=== PATIENT | male | born 1970 | race Caucasian/White ===

== ENCOUNTER 2025-07-18 20:29 | Emergency (ER) | payer OTHER, SELFPAY ==
--- OUTSIDE RECORDS SUMMARY | 2021-03-16 07:20 | XMS_ITS | Continuity of Care Document ---
Author Organization [facility] Address [address] [place] [address] Phone Care Team Providers Care Filer And Sander Name Role Phone Americo Dorantes MD Unavailable Unavailable Allergies, Adverse Reactions, Alerts Substance Reaction Status Criticality No Known Allergies Active No Inform ation Medications Medication Instructions Dosage Effective Dates (start - stop) Status Comments hydrocodone 5 mg-acetaminophen 325 mg tablet 1-2 po bid prn pain - Active G89.11 acute pain tramadol 50 mg tablet 1-2 po bid prn pain - Active Acute p ain G89.117 day supply prednisone 20 mg tablet 3 po daily x 3d 2 po daily x 2d 1 po daily x1 d - Active Procedures Procedure Date Office/outpatient visit,est, mod 2020 Inject foramin, lumb/sacral, single Office/outpatient visit,est, mod 2020 MRI Lumbar Spine wo Contrast Office/outpatient visit,est, mod 2020 Office/outpatient visit,new, mod 2020 X-ray exam lower spine 2-3 views 2020 Advance Directives Directive Yes / No Effective Date File Name No Information Encounters Encounter Description Practice Location Reason(s) For Visit Diagnoses Date Provider Providers Copied on Encounter [facility], [facility] [place], [address], [place] tel:[phone] [facility] No Information 1 Jayna Driscoll. [address] [facility], [place], [place], [id number] , [place]. tel:[phone] Referring Provider: Americo Aburto, [address] [facility], [place], [address] . tel:[phone] Office/outpat ient visit,est, mod [facility], [facility] [address] [place], [place], [facility], tel:[phone] [facility] Radiculopath y, lumbar region 1 Jayna Driscoll. [address] [facility], [place], [place], [id number] , [place]. tel:[phone] Referring Provider: Americo Aburto, [address] [facility] [facility], [place], [address] . tel:[phone] [facility], [facility] [place], [place], [facility], tel:[phone] [facility] No Information 1 Jayna Driscoll. [address] [facility] [facility], [place], [place], [id number] , [place]. tel:[phone] Referring Provider: Americo Aburto, [address] [facility] [facility], [place], [address] . tel:[phone] Office/outpat ient visit,est, mod [facility], [facility] [place], [address], [place] tel:[phone] [facility]icul[facility], lumbar region 1 Jayna Driscoll. [address] [facility], [place], [place], [id number] , [place]. tel:[phone] Referring Provider: Americo Aburto, [address] [place], [address] . tel:[phone] [facility], [facility] [address] [place], [place], [facility], [place] tel:[phone] [facility] No Information 1 Jayna Driscoll. [address], [place], [id number] , . tel:[phone] Referring Provider: Americo Aburto, [address] [place], [address] . tel:[phone] Office/outpat ient visit,[facility], [facility] [address] [place], [place], [facility], tel:[phone] Ike Patino Other spondylosis, lumbar region Dec-0 1 Jayna Driscoll. [address], [place], [id number] , [place]. [phone] Referring Provider: Americo Aburto, [address] [place], [address] . tel:[phone] Office/outpat ient visit,[facility], [facility] [address] [place], [place], [facility], tel:[phone] Ike Patino Other spondylosis, lumbar region 3 1 Jayna Driscoll. [address], [place], [id number] , . [phone] Family History Family Member Type Diagnosis Age At Onset Mother Problem (finding) Diabetes mellitus Brother Problem (finding) Hypertension Mother Problem (finding) Hypertension Father Problem (finding) Hypertension Father Problem (finding) Congenital heart diseas e Father Problem (finding) Hyperlipidemia Brother Problem (finding) Diabetes mellitus Payers Payer name Insurance type Covered green party ID Authorrenana kasey(s) [place] - [phone] [id number] Social History Type Description Quantity Date Captured Comments Alcohol Use Details Unknown Caffeine Use Details Unknown Tobacco Use Status No Information Smoking Status No Information Sex Male Chief Complaint And Reason For Visit No Information Reason For Referral Reason For Referral No Information Plan Of Treatment Date Type Action Status Future Order: Radiology Order MR I Lumbar Spine WO Contrast (35355), Collected on: , Sent on: Sent History Of Present Illness Encounter Date Complaint History Of Prese nt Illness lumbar spine Functional Status Date Functional Assessmen t No Information Instructions Date Instruction Additional Infor mation No Information Assessments Type Assessment Date No Information Patient Care Teams Name Effective Dates (start - stop) Status Members No Information
--- OUTSIDE RECORDS SUMMARY | 2023-06-03 11:15 | XMS_ITS | Continuity of Care Document ---
Author Organization [facility] Address [address] [place] [address] Phone Care Team Providers Care Director Of Financial Reporting Name Role Phone Anamika Matta MD Unavailable Unavailable Allergies, Adverse Reactions, Alerts Substance Reaction Status Criticality No Known Allergies Active No Inform ation Medications Medication Instructions Dosage Effective Dates (start - stop) Status Comments Vigamox 0.5 % eye drops instill 1 drop by ophthalmic route 4 times every day into right eye 1 drop - Active Percocet 5 mg-325 mg tablet take 1 tablet by oral route every 8 hours as needed 1 tablet - Active Procedures Procedure Date OFFICE/OUTPATIENT VISIT, EST, Low OFFICE/OUTPATIENT VISIT, EST, Moderate S OFFICE/OUTPATIENT VISIT, NEW Advance Directives Directive Yes / No Effective Date File Name No Information Encounters Encounter Description Practice Location Reason(s) For Visit Diagnoses Date Provider Providers Copied on Encounter OFFICE/OUTPATI ENT VISIT, EST, Low [facility] , [address] [place], [place], [facility], tel:[phone] [facility] [place] [facility] corneal abrasion f/u (chief complaint) Abrasion of right cornea, subsequent encounter Sigrid Willson. [address] [place], [place], [id number], . tel:[phone] Referring Provider: No Ref Doc No Referring Doc. OFFICE/OUTPATI ENT VISIT, EST, Moderate [facility] , [address] [place], [place], [facility], tel:[phone] [facility] [place] [facility] corneal abrasion f/u (chief complaint) Abrasion of right cornea, subsequent encounter Jlmag Erwin. [address] [place], [place], [id number], . tel:[phone] Referring Provider: No Ref Doc No Referring Doc. OFFICE/OUTPATI ENT VISIT, [facility] , [address] [place], [place], [facility], tel:[phone] [facility] Low Dewitt hit by a rock (chief complaint) Abrasion of right cornea, initial encounter Moe Danielle. [address] [place], [place], [id number], . tel:[phone] Referring Provider: No Ref Doc No Referring Doc. Family History Family Member Type Diagnosis Age At Onset Father Problem hypertension Maternal grandmother Problem cancer of colon Mother Problem hypertension Problem No family history of Catarac ts Problem No family history of [place] a Mother Problem degenerative disorder of mac mark Mother Problem Diabetes mellitus Payers Payer name Insurance type Covered libertarian ID Leonard parks(s) [facility] [place] [id number] Social History Type Description Quantity Date Captured Comments Alcohol Use Details Unknown Caffeine Use Details Unknown Tobacco Use Status No Information Smoking Status No Information Sex Male Chief Complaint And Reason For Visit From encounter dated '06/03/2023 15:15'. corneal abrasion f/u (chief complaint). Description: The 52 year old client presents for 4 day follow up evaluation of corneal abrasion in the right eye. Patient states his eye feels better. His vision is still coming back and he is still having a little shadowing and light sensitivity. His eyes feel dry and itchy. Denies pain, redness, tearing, foreign body sensation. Using moxifloxacin 4 times per day, and artificial tears in both eyes 3-4 times per day. Reason For Referral Reason For Referral No Information History Of Present Illness Encounter Date Complaint History Of Prese nt Illness corneal abrasion f/u The 52 year old client presents for 4 day follow up evaluation of corneal abrasion in the right eye. Patient states his eye feels better. His vision is still coming back and he is still having a little shadowing and light sensitivity. His eyes feel dry and itchy. Denies pain, redness, tearing, foreign body sensation. Using moxifloxacin 4 times per day, and artificial tears in both eyes 3-4 times per day. corneal abrasion f/u The 52 year old male presents for 2 day follow up evaluation of corneal abrasion in the right eye. Patient states his vision is improving, and he is seeing a spread or shadow behind letters when reading. Complains of itching. Denies pain, tearing, foreign body sensation, light sensitivity. Using moxifloxacin 4 times per day, and artificial tears 4 times per day between the antibiotic drops. hit by a rock The 52 year old male presents for urgent evaluation after he was hit by a rock in the right eye 1 day ago. Patient was using a weed eater with no safety glasses and some debris flew into his eye. He flushed his eye with water and he used his 's erythromycin ointment 2 times yesterday. Complains of pain severity 6 of 10, redness, tearing, feeling like an eyelash stuck in his eye rubbing on a cut, light sensitivity, blurry vision. He used artificial tears when needed. Functional Status Date Functional Assessmen t No Information Instructions Date Instruction Additional Infor earnest Impression/Plan Impression/Plan Impression/Plan Assessments Type Assessment Date assessment Abrasion of right cornea, subseq uent encounter Patient Care Teams Name Effective Dates (start - stop) Status Members No Information
[2025-07-18 20:35] VITALS: PULSE 89; O2SAT 98; BMI 36.6
--- OUTSIDE RECORDS SUMMARY | 2025-07-18 20:45 | XMS_ITS | Clinical Summary ---
Author Organization [facility] Healthcare Address [address] [place] [address] Care Team Providers Care Nougat Candy Maker Helper Name Role Phone Jose Lo DO Primary Care Provider [phone] Allergies No known active allergies Medications MedicationSigDispense QuantityRefillsLast FilledStart DateEnd DateStatus meloxicam (Mobic) 15 MG tablet Indications:Cubital tunnel syndrome of both upper extremitiesTake 1 tablet (15 mg) by mouth once per day 30 tablet 4Active fluticasone (Flonase) 50 MCG/ACT nasal spray Indications:Sinusitis, unspecified chronicity, unspecified locationAdminister 2 sprays into each nostril Daily Shake gently. Before first use, prime pump. After use, clean tip and replace cap. 16 g 5Active Active Problems ProblemNoted DateDiagnosed DateBladder venqaqpxysjd17/08/2025 Encounters DateTypeDepartmentCare FyfxLuefagrvsxn09/04/2025Results Follow-Up [facility] [address] [place] [address] Jose Lo, Hemoglobin P0lffhb Last 3 Months Family History Medical HistoryRelationNameCommentsCancerFatherUterine cancerMotherRelationName TyymylDbigbxfiJnexzhsZssel2ZixgetWrpssXpynwqPbxloExyUdeuh2 Social History Tobacco UseTypesPacks/DayYears UsedDateSmoking Tobacco: FormerCigarettesQuit: 11/02/2024Smokeless Tobacco: Never Tobacco Cessation:Counseling Given: Yes Alcohol UseStandard Drinks/WeekCommentsYes6 (1 standard drink = 0.6 oz pure alcohol)B1300 Health LiteracyAnswerDate RecordedHow often do you need to have someone help you when you read instructions, pamphlets, or other written material from your doctor or pharmacy?Never07/28/2024Social Connection and Isolation PanelAnswerDate RecordedIn a typical week, how many times do you talk on the phone with family, friends, or neighbors?More than three times a week 07/28/2024How often do you get together with friends or relatives?Twice a week 07/28/2024How often do you attend methodist or temple services?Never07/28/2024o you belong to any clubs or organizations such as methodist groups, unions, fraternal or athletic groups, or school groups?Yes07/28/2024How often do you attend meetings of the clubs or organizations you belong to?Never07/28/2024re you , , , , never , or living with a partner?Tbyaplf5307/28/2024UDIT-CAnswerDate RecordedQ1: How often do you have a drink containing alcohol?2-3 times a week07/28/2024Q2: How many drinks containing alcohol do you have on a typical day when you are drinking?5 or 6 07/28/2024Q3: How often do you have six or more drinks on one occasion?Monthly 07/28/2024Overall Financial Resource Strain (CARDIA)AnswerDate RecordedHow hard is it for you to pay for the very basics like food, housing, medical care, and heating?Not hard at all07/28/2024HQ-2AnswerDate RecordedPatient Health Questionnaire-2 Bjazg187[facility] [place] of Occupational Health - Occupational Stress QuestionnaireAnswerDate RecordedDo you feel stress - tense, restless, nervous, or anxious, or unable to sleep at night because yourmind is troubled all the time - these days?Not at all07/28/2024Exercise Vital SignAnswer Date RecordedOn average, how many days per week do you engage in moderate to strenuous exercise (like a brisk walk)?0 days07/28/2024On average, how many minutes do you engage in exercise at this level?0 min07/28/2024Hunger Vital Sign AnswerDate RecordedWithin the past 12 months, you worried that your food would run out before you got the money to buymore.Never true07/28/2024Within the past 12 months, the food you bought just didn't last and you didn't have money to get more.Never true07/28/2024RAPARE - TransportationAnswerDate RecordedIn the past 12 months, has lack of transportation kept you from medical appointments or from getting medications?No07/28/2024In the past 12 months, has lack of transportation kept you from meetings, work, or from getting things needed for daily living?No07/28/2024Housing Stability Vital SignAnswerDate RecordedIn the last 12 months, was there a time when you were not able to pay the mortgage or rent on time?No07/28/2024In the past 12 months, how many times have you moved where you were living?t any time in the past 12 months, were you homeless or living in a long term (including now)?No07/28/2024Sex and Gender InformationValueDate RecordedSex Assigned at BirthNot on fileLegal SexMale 12/05/2022 6:34 PM EDTGender IdentityNot on fileSexual OrientationNot on file Last Filed Vital Signs Vital SignReadingTime TakenCommentsBlood Rfwkibtf040/80011/16/2024 2:21 PM EST Tciun977611/16/2024 2:21 PM RUQZvrxvpkychx16.8 ??C (98.3 ??F)11/16/2024 2:21 PM ESTRespiratory Rate--Oxygen Otdkzduqga99%11/16/2024 2:21 PM ESTInhaled Oxygen Concentration--Axsrln226 kg (257 lb)11/16/2024 2:21 PM FGXDungnl223.4 cm (5' 8.25 )11/16/2024 2:21 PM ESTBody Mass Index38.7911/16/2024 2:21 PM EST Plan of Treatment Health MaintenanceDue DateLast DoneCommentsCT Tfewwxcpivmg04/18/1972Colonoscopy 1971FIT1971FOBT1971 9804Azsfxxukackjp89/18/1972Influenza Vaccine (#1)5Colorectal Cancer Radeicbis50/18/2025FIT-DNA51, 07/10/2022 Procedures Procedure NamePriorityDate/TimeAssociated DiagnosisCommentsHEMOGLOBIN I7LVjsnzia 04/23/2025 8:17 AM EDT IFG (impaired fasting glucose) LAB COLOGUARD?? COLON CANCER HSXZHNVqueogz92/18/2022 from Last 3 Months or Most Recently Relevant to Health Maintenance Results * (ABNORMAL) Hemoglobin A1c (04/23/2025 8:17 AM EDT)ComponentValueRef RangeTest MethodAnalysis TimePerformed AtPathologist LgvfghspwYcbD9F0.8(H)4.8 - 5.6 % LABCORPComment: ? Prediabetes: 5.7 - 6.4 Diabetes: >6.4 Glycemic control for adults with diabetes: <7.0 Specimen (Source)Anatomical Location / LateralityCollection Method / Volume Collection TimeReceived TimeBloodVenous blood specimen / Rooldei9804/23/2025 8:17 AM EDT04/23/2025 Narrative [facility] - 04/24/2025 6:07 AM EDT Performed at: [address] ??[id number] Superintendent Colliery: Saeid Jauregui PhD, Phone: ??[phone] Authorizing ProviderResult TypeResult StatusMatthew Hima SMITH BLOOD ORDERABLESFinal ResultPerforming OrganizationAddressCity/State/ZIP CodePhone Number [facility] * Cologuard?? colon cancer screening (07/10/2022)ComponentValueRef RangeTest MethodAnalysis TimePerformed AtPathologist SignatureCOLOGUARD RESULT REPORTABLENegativeNegativeNOMS LEGACY EXTERNAL LABComment: NEGATIVE TEST RESULT. A negative Cologuard result indicates a low likelihood that a colorectal cancer (CRC) or advanced adenoma (adenomatous polyps with more advanced pre-malignant features) ??is present. The chance that a person with a negative Cologuard test has a colorectal cancer is less than 1in 1500 (negative predictive value >99.9%) or has an advanced adenoma is less than 5.3% (negative predictive value 94.7%). These data are based on a prospective cross-sectional study of 10,000individuals at average risk for colorectal cancer who were screened with both Cologuard and colonoscopy. (Dinora Brizuela al, N Engl J Med 2014;370(14):0854-2286) The normal value (reference range) for this assay is negative. COLOGUARD RE-SCREENING RECOMMENDATION: Periodic colorectal cancer screening is an important part ofpreventive healthcare for asymptomatic individuals at average risk for colorectal cancer. ??Following a negative Cologuard result, the [employer] Society and U.S. Multi-Society Task Force screening guidelines recommend a Cologuard re-screening interval of 3 years. References: [employer] Guideline for Colorectal Cancer Screening: https://www.cancer.or g/cancer/nxoxp-lbokyc-qazkep/dlljxntwu-qarqkmoui-gkbjxzz/acs-recommendations.htm arvind; Dickson HORN, Andrea LYON, Quentin AburtoK, Colorectal Cancer Screening: Recommendations for Physicians and Patients from the U.S. Multi-Society Task Force on Colorectal Cancer Screening , Am J Gastroenterology 2017; 112:0532-5544. TEST DESCRIPTION: Composite algorithmic analysis of stool DNA-biomarkers with hemoglobin immunoassay. ?? Quantitative values of individual biomarkers are not reportable and are not associated with individual biomarker result reference ranges. Cologuard is intended for colorectal cancer screening ofadults of either sex, 45 years or older, who are at average-risk for colorectal cancer (CRC). Cologuard has been approved for use by the U.S. FDA. The performance of Cologuard was established in a cross sectional study of average-risk adults aged 50-84. Cologuard performance in patients ages 45 to 49 years was estimated by sub-group analysis of near-age groups. Colonoscopies performed for a positive result may find as the most clinically significant lesion: colorectal cancer [4.0%], advanced adenoma (including sessile serrated polyps greater than or equal to 1cm diameter) [20%] or non- advanced adenoma [31%]; or no colorectal neoplasia [45%]. These estimates are derived from a prospective cross-sectional screening study of 10,000 individuals at average risk for colorectal cancer who were screened with both Cologuard and colonoscopy. (Dinora Brizuela al, N Engl J Med 2014;370(14):4764-2155.) Cologuard may produce a false negative or false positive result (no colorectal cancer or precancerous polyp present at colonoscopy follow up). A negative Cologuard test result does not guarantee the absence of CRC or advanced adenoma (pre-cancer). The current Cologuard screening interval is every 3 years. ([employer] and U.S. Multi-Society Task Force). Cologuard performance data in a 10,000 patient pivotal study using colonoscopy as the reference method can be accessed at the following location: www.[employer].Crosswise/results. Additional description of the Cologuard test process, warnings and precautions can be found at www.cologuard.com. Specimen (Source)Anatomical Location / LateralityCollection Method / Volume Collection TimeReceived Time07/10/2022 Narrative Authorizing ProviderResult TypeResult StatusMattdiana SMITH MOLECULAR DIAGNOSTICS ORDERABLESFinal ResultPerforming OrganizationAddressCity/State/ZIP CodePhone Number [facility] from Last 3 Months or Most Recently Relevant to Health Maintenance Insurance Care Teams Team MemberRelationshipSpecialtyStart DateEnd Date Jose Lo DO [address] [place] [address] PCP - [facility]01/29/23
[2025-07-18 20:47] VITALS: BP 172/100
--- NOTE | 2025-07-18 20:59 | ED.GENADUL1 ---
Documented by User: GABE Thomas 07/19/25 00:32 HPI HPI - General Adult General Chief complaint: Skin/Abscess/Foreign Body Stated complaint: POSS BEE STING Time Seen by Provider: 07/18/25 20:55 Source: patient Mode of arrival: walk-in Limitations: no limitations History of Present Illness HPI narrative: Patient is a 54-year-old male that presents to the emergency department with complaints of bee sting to the dorsum of the right hand. 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 He was just done last week but did not have a reaction like this. He denies any previous reaction like this. He is having some nausea as the hand is getting painful and swollen. Related Data Home Medications ?Medication ?Instructions ?Recorded ?Confirmed No Known Home Medications 07/18/25 07/18/25 Allergies Allergy/AdvReac Type Severity Reaction Status Date / Time No Known Drug Allergies Allergy Verified 07/18/25 20:42 Opioid HPI Opioid Management Most Recent Opioid Data: Last Pain Scale 2 07/18/25, 22:26 Last ED Pain Assessment 07/18/25, 22:26 Last MAR Pain Assessment 07/18/25, 21:52 Review of Systems ROS Status of ROS 10 or more systems reviewed and unremarkable except as noted in history and below PFSH PFSH Social History Little interest or pleasure in doing things: not at all Feeling down, depressed, or hopeless: not at all Exam Narrative Exam Narrative: General: No distress, age-appropriate Skin: Warm, dry, no pallor. No rash. Head: Normocephalic, atraumatic. Neck: Supple, non-tender. Eye: Pupils are equal, round and EOMI. No scleral icterus. Ears, Nose, Mouth, and Throat: No nasal mucosal hypertrophy. Oral mucosa is moist, no posterior oropharynx erythema, uvula is mid-line Cardiovascular: Regular Rate and Rhythm without murmur, gallop or rub. Respiratory: No accessory muscle use or respiratory distress. Lungs are clear to auscultation, no wheezing, rales or rhonchi Musculoskeletal: Full ROM of all extremities, except right hand is swollen and patient unable to make a full fist. Pain with attempted finger or wrist flexion. Extensive swelling of Right hand/fingers and somewhat into wrist. Neurological: A&O x4. No cranial nerve dysfunction observed. No truncal ataxia. Moves all extremities. Sensation intact. Psychiatric: Cooperative and interactive. Normal mood and affect. Constitutional Vital Signs, click to edit/add: Last Vital Signs Pulse 77 07/19/25 02:44 Resp 17 07/19/25 02:44 BP 133/84 07/19/25 05:00 Pulse Ox 97 07/19/25 05:00 O2 Del Method Room Air 07/18/25 20:35 Course Vital Signs Vital signs: Vital Signs Pulse Rate 89 07/18/25 20:35 Respiratory Rate 20 07/18/25 20:35 Pulse Oximetry 98 07/18/25 20:35 Oxygen Delivery Method Room Air 07/18/25 20:35 Pulse Rate 77 07/19/25 02:44 Respiratory Rate 17 07/19/25 02:44 Blood Pressure 133/84 07/19/25 05:00 Pulse Oximetry 97 07/19/25 05:00 Oxygen Delivery Method Room Air 07/18/25 20:35 Medical Decision Making MDM Narrative Medical decision making narrative: This is a 54-year-old male that presented to the emergency department with right hand pain and swelling after being stung by a bee on the dorsum of his right hand. 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 On arrival patient is in no distress, he does feel nauseous when he attempts to move his right hand or fingers. Blood pressure is hypertensive, no tachycardia, vitals are hemodynamically stable. 98% O2 saturations on room air. Patient speaks in clear full sentences. No complaints of systemic symptoms. No complaints of throat closing, tongue swelling, or shortness of breath. IV placed. 50 mg Benadryl IV, 2 mg Pepcid IV, 4 mg Zofran IV, 30 mg Toradol IV, and 40 mg prednisone p.o. given. At this time, 2200, patient was signed out to Dr. Troy. Patient disposition pending clinical response to medications. Differential Diagnosis Differential Diagnosis: Allergic reaction, cellulitis, anaphylaxis Lab Data Labs: Lab Results 07/19/25 Range/Units 02:30 WBC 12.1 H (4.0-11.0) 10^3/uL RBC 4.96 (4.70-6.10) 10^6/uL Hgb 14.9 (14.0-18.0) g/dL Hct 44.3 (42.0-54.0) % MCV 89.3 (80.0-94.0) fL MCH 30.0 (25.9-34.0) pg MCHC 33.6 (29.9-35.2) g/dL RDW 12.1 (11.0-15.0) % Plt Count 344 (150-450) 10^3/uL MPV 10.1 (9.5-13.5) fL Neut % (Auto) 89.9 H (43.0-75.0) % Lymph % (Auto) 7.7 L (20.5-60.0) % [place] % (Auto) 1.6 L (1.7-12.0) % Eos % (Auto) 0.2 L (0.9-7.0) % Baso % (Auto) 0.3 (0.2-2.0) % Neut # (Auto) 10.9 H (1.4-6.5) 10^3/uL Lymph # (Auto) 0.9 L (1.2-3.8) 10^3/uL [place] # (Auto) 0.2 L (0.3-0.8) 10^3/uL Eos # (Auto) 0.0 (0.0-0.7) 10^3/uL Baso # (Auto) 0.0 (0.0-0.1) 10^3/uL Abs Immat Gran (auto) 0.04 H (0.00-0.03) 10^3/uL Imm/Tot Granulo (auto) 0.3 (0.0-0.5) % Sodium 140 (136-145) mmol/L Potassium 4.1 (3.5-5.1) mmol/L Chloride 105 (98-107) mmol/L Carbon Dioxide 26.7 (21.0-32.0) mmol/L Anion Gap 12.4 BUN 16.0 (7.0-18.0) mg/dL Creatinine 0.96 (0.70-1.30) mg/dL Est GFR ( Amer) >60 (>=60 mL/min/1.73m^2) Est GFR (Non-Af Amer) >60 (>=60 mL/min/1.73m^2) BUN/Creatinine Ratio 16.7 Glucose 154 H (74-106) mg/dL Calcium 8.8 (8.5-10.1) mg/dL Total Bilirubin 0.1 L (0.2-1.0) mg/dL AST 17 (15-37) U/L ALT 39 (16-63) U/L Alkaline Phosphatase 86 (46-116) U/L Total Protein 7.1 (6.4-8.2) g/dL Albumin 3.6 (3.4-5.0) g/dL Globulin 3.5 g/dL Albumin/Globulin Ratio 1.0 Lipase 27.0 (16.0-77.0) U/L Discharge Plan Discharge Chief Complaint: Skin/Abscess/Foreign Body Clinical Impression: Insect bites, Cellulitis, Diverticulitis Patient Disposition: Home, Self-Care Prescriptions / Home Meds: No Action No Known Home Medications Print Language: Wolof Instructions: Diverticulitis (ED), Cellulitis (ED), Insect Bite or Sting (ED) Additional Instructions: follow up with your doctor in 2-3 days for recheck Referrals: PAR[facility] PONCE [Primary Care Provider, Unknown] - 1 week Documented by User: Raheem Troy MD 07/19/25 05:15 HPI HPI - General Adult General Chief complaint: Skin/Abscess/Foreign Body Stated complaint: POSS BEE STING Time Seen by Provider: 07/18/25 20:55 Related Data Home Medications ?Medication ?Instructions ?Recorded ?Confirmed No Known Home Medications 07/18/25 07/18/25 Allergies Allergy/AdvReac Type Severity Reaction Status Date / Time No Known Drug Allergies Allergy Verified 07/18/25 20:42 Opioid HPI Opioid Management Most Recent Opioid Data: Last Pain Scale 2 07/18/25, 22:26 Last ED Pain Assessment 07/18/25, 22:26 Last MAR Pain Assessment 07/18/25, 21:52 PFSH PFSH Social History Little interest or pleasure in doing things: not at all Feeling down, depressed, or hopeless: not at all Exam Constitutional Vital Signs, click to edit/add: Last Vital Signs Pulse 77 07/19/25 02:44 Resp 17 07/19/25 02:44 BP 133/84 07/19/25 05:00 Pulse Ox 97 07/19/25 05:00 O2 Del Method Room Air 07/18/25 20:35 Course Vital Signs Vital signs: Vital Signs Pulse Rate 89 07/18/25 20:35 Respiratory Rate 20 07/18/25 20:35 Pulse Oximetry 98 07/18/25 20:35 Oxygen Delivery Method Room Air 07/18/25 20:35 Pulse Rate 77 07/19/25 02:44 Respiratory Rate 17 07/19/25 02:44 Blood Pressure 133/84 07/19/25 05:00 Pulse Oximetry 97 07/19/25 05:00 Oxygen Delivery Method Room Air 07/18/25 20:35 Medical Decision Making MDM Narrative Medical decision making narrative: This is a 54-year-old male that presented to the emergency department with right hand pain and swelling after being stung by a bee on the dorsum of his right hand. 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 On arrival patient is in no distress, he does feel nauseous when he attempts to move his right hand or fingers. Blood pressure is hypertensive, no tachycardia, vitals are hemodynamically stable. 98% O2 saturations on room air. Patient speaks in clear full sentences. No complaints of systemic symptoms. No complaints of throat closing, tongue swelling, or shortness of breath. IV placed. 50 mg Benadryl IV, 2 mg Pepcid IV, 4 mg Zofran IV, 30 mg Toradol IV, and 40 mg prednisone p.o. given. At this time, 0, patient was signed out to Dr. Troy. Patient disposition pending clinical response to medications. patient re examined and it is noted that he has faint erythema of the right FA as well. Patient informed of the plan to treat with antibiotics for possible cellulitis. He is also complaing of RUQ abdominal pain. CT ordered CT returns with findings of acute diverticulitis. Patient's right arm continues to improve. Patient discharged home with prednisone and augmentin Lab Data Labs: Lab Results 07/19/25 Range/Units 02:30 WBC 12.1 H (4.0-11.0) 10^3/uL RBC 4.96 (4.70-6.10) 10^6/uL Hgb 14.9 (14.0-18.0) g/dL Hct 44.3 (42.0-54.0) % MCV 89.3 (80.0-94.0) fL MCH 30.0 (25.9-34.0) pg MCHC 33.6 (29.9-35.2) g/dL RDW 12.1 (11.0-15.0) % Plt Count 344 (150-450) 10^3/uL MPV 10.1 (9.5-13.5) fL Neut % (Auto) 89.9 H (43.0-75.0) % Lymph % (Auto) 7.7 L (20.5-60.0) % [place] % (Auto) 1.6 L (1.7-12.0) % Eos % (Auto) 0.2 L (0.9-7.0) % Baso % (Auto) 0.3 (0.2-2.0) % Neut # (Auto) 10.9 H (1.4-6.5) 10^3/uL Lymph # (Auto) 0.9 L (1.2-3.8) 10^3/uL [place] # (Auto) 0.2 L (0.3-0.8) 10^3/uL Eos # (Auto) 0.0 (0.0-0.7) 10^3/uL Baso # (Auto) 0.0 (0.0-0.1) 10^3/uL Abs Immat Gran (auto) 0.04 H (0.00-0.03) 10^3/uL Imm/Tot Granulo (auto) 0.3 (0.0-0.5) % Sodium 140 (136-145) mmol/L Potassium 4.1 (3.5-5.1) mmol/L Chloride 105 (98-107) mmol/L Carbon Dioxide 26.7 (21.0-32.0) mmol/L Anion Gap 12.4 BUN 16.0 (7.0-18.0) mg/dL Creatinine 0.96 (0.70-1.30) mg/dL Est GFR ( Amer) >60 (>=60 mL/min/1.73m^2) Est GFR (Non-Af Amer) >60 (>=60 mL/min/1.73m^2) BUN/Creatinine Ratio 16.7 Glucose 154 H (74-106) mg/dL Calcium 8.8 (8.5-10.1) mg/dL Total Bilirubin 0.1 L (0.2-1.0) mg/dL AST 17 (15-37) U/L ALT 39 (16-63) U/L Alkaline Phosphatase 86 (46-116) U/L Total Protein 7.1 (6.4-8.2) g/dL Albumin 3.6 (3.4-5.0) g/dL Globulin 3.5 g/dL Albumin/Globulin Ratio 1.0 Lipase 27.0 (16.0-77.0) U/L Discharge Plan Discharge Chief Complaint: Skin/Abscess/Foreign Body Clinical Impression: Insect bites, Cellulitis, Diverticulitis Patient Disposition: Home, Self-Care Prescriptions / Home Meds: No Action No Known Home Medications Print Language: Wolof Instructions: Diverticulitis (ED), Cellulitis (ED), Insect Bite or Sting (ED) Additional Instructions: follow up with your doctor in 2-3 days for recheck Referrals: PAR[facility] PONCE [Primary Care Provider, Unknown] - 1 week
[2025-07-18] MEDS: PREDNISONE 20 MG TABLET 40 MG PO (21:15)
[2025-07-18] MEDS: DIPHENHYDRAMINE HCL 50 MG/ML VIAL IVP (21:15)
[2025-07-18] MEDS: FAMOTIDINE/PF 20 MG/2 ML VIAL IV (21:16)
[2025-07-18] MEDS: KETOROLAC TROMETHAMINE 30 MG/ML VIAL IVP (21:52)
[2025-07-18] MEDS: METHYLPREDNISOLONE SOD SUCC PF 40 MG/ML VIAL IVP (22:58)
[2025-07-19] VITALS (18 sets, daily range): BP systolic 123–155; BP diastolic 82–96; PULSE 77; O2SAT 94–100
[2025-07-19] MEDS: AMPICILLIN SODIUM/SULBACTAM NA 3 GM in 0.9 % SODIUM CHLORIDE 100 ML IV (01:15)
--- NOTE | 2025-07-19 01:33 | PC.NURSE ---
Dr Troy informed of this patient concern of right upper abdomen(under rib cage) 2 or 11/30
--- NOTE | 2025-07-19 01:38 | PC.NURSE ---
i informed this patient that i told Dr Troy was updated about his right upper abdomen discomfort
[2025-07-19 02:40] LABS: Hematocrit 44.3 % (42.0-54.0); Hemoglobin 14.9 g/dL (14.0-18.0); Immature Granulocytes Abs Auto 0.04 10^3/uL (0.00-0.03); Immature Granulocytes Pct Auto 0.3 % (0.0-0.5); Lymphocytes Absolute Auto 0.9 10^3/uL (1.2-3.8); Mean Corpuscular HGB Conc 33.6 g/dL (29.9-35.2); Mean Corpuscular Hemoglobin 30.0 pg (25.9-34.0); Mean Corpuscular Volume 89.3 fL (80.0-94.0); Platelet Count 344 10^3/uL (150-450); Red Blood Count 4.96 10^6/uL (4.70-6.10); White Blood Count 12.1 10^3/uL (4.0-11.0)
--- NOTE | 2025-07-19 02:41 | PC.NURSE ---
blood draw completed and sen to lab dept i informed this patient now we wait for the ct and blood draw results. this patient voices no concerns, needs and shows no signs of distress
[2025-07-19 02:58] LABS: Alanine Aminotransferase 39 U/L (16-63); Albumin Globulin Ratio 1.0; Albumin Level 3.6 g/dL (3.4-5.0); Alkaline Phosphatase 86 U/L (46-116); Anion Gap 12.4; Aspartate Amino Transferase 17 U/L (15-37); Blood Urea Nitrogen 16.0 mg/dL (7.0-18.0); Calcium 8.8 mg/dL (8.5-10.1); Carbon Dioxide 26.7 mmol/L (21.0-32.0); Chloride 105 mmol/L (98-107); Estimated GFR (African America >60 (>=60 mL/min/1.73m^2); Estimated GFR (Non-African Ame >60 (>=60 mL/min/1.73m^2); Globulin 3.5 g/dL; Glucose 154 mg/dL (74-106); Lipase 27.0 U/L (16.0-77.0); Potassium 4.1 mmol/L (3.5-5.1); Sodium 140 mmol/L (136-145); Total Protein 7.1 g/dL (6.4-8.2)
--- NOTE | 2025-07-19 03:03 | PC.NURSE ---
still waiting on all of the test results to come back. this patient voices no concerns, needs and shows no signs of distress
--- NOTE | 2025-07-19 05:07 | PC.NURSE ---
this patient is back from waking to the restroom, informed this patient that his final ct scan report is back and Dr Troy will be in shortly to tell you the results. this patient replied ok and voices no concerns, needs and shows no signs of distress
--- NOTE | 2025-07-19 05:21 | PC.NURSE ---
i gave this patient verbal and written discharge orders along with 2 Rx and this patient voices yes to understanding these. at time of discharge this patient voices no concerns, needs and shows no signs of distress
== END 2025-07-19 05:21 | disposition home or self-care (01) ==
PROVIDERS: Emergency Provider Internal Medicine; PCP Family Medicine
DX: T63.441A Toxic effect of venom of bees, accidental (unintentional), initial encounter (principal); K57.32 Diverticulitis of large intestine without perforation or abscess without bleeding; M79.641 Pain in right hand; R11.0 Nausea; L03.113 Cellulitis of right upper limb
CPT/HCPCS: 36415; 74177; 80053; 83690; 85025; 96365; 96375; 99285; J0295; J1200; J1885; J2405; J2919; J3490; J7512; Q9967